=== PATIENT | male | born 1975 | race Caucasian/White ===

== ENCOUNTER 2020-08-02 02:16 | Inpatient (IN) | payer MEDICARE, OTHER ==
[~2020-08-02] VITALS: Ht 180.3 cm; Wt 108.4 kg
[2020-08-02 02:50] LABS: HEMOGLOBIN 14.6 gm/dl (14.0-17.5); RED BLOOD COUNT 4.61 M/UL (4.20-5.50); WHITE BLOOD COUNT 11.4 K/UL (4.5-11.0)
[2020-08-02 03:07] LABS: BUN/CREATININE RATIO 17 (0-10)
[2020-08-02] MEDS ORDERED: OXYCODONE HCL10 MG PO (08:27)
[2020-08-02] MEDS ORDERED: REVATIO 20 MG T20 MG PO (08:28)
[2020-08-02] MEDS ORDERED: GABAPENTIN600 MG PO (08:28)
[2020-08-02] MEDS ORDERED: METAXALONE800 MG PO (08:29)
[2020-08-03 02:47] LABS: HEMOGLOBIN 12.8 gm/dl (14.0-17.5); RED BLOOD COUNT 4.18 M/UL (4.20-5.50)
[2020-08-03 08:23] LABS: BUN/CREATININE RATIO 11 (0-10)
[2020-08-04 08:12] LABS: HEMOGLOBIN 13.3 gm/dl (14.0-17.5); RED BLOOD COUNT 4.18 M/UL (4.20-5.50)
[2020-08-04 08:13] LABS: WHITE BLOOD COUNT 14.6 K/UL (4.5-11.0)
[2020-08-04 08:31] LABS: BUN/CREATININE RATIO 9 (0-10)
[2020-08-05 08:15] LABS: HEMOGLOBIN 13.1 gm/dl (14.0-17.5); RED BLOOD COUNT 4.14 M/UL (4.20-5.50); WHITE BLOOD COUNT 11.7 K/UL (4.5-11.0)
[2020-08-05 08:50] LABS: BUN/CREATININE RATIO 10 (0-10)
[2020-08-05] MEDS ORDERED: ZOFRAN 4 MG TAB4 MG PO (12:04)
[2020-08-05] MEDS ORDERED: MELATONIN3 MG PO (12:04)
[2020-08-05] MEDS ORDERED: PROTONIX40 MG PO (12:04)
[2020-08-05] MEDS ORDERED: NORVASC10 MG PO (12:04)
[2020-08-05] MEDS ORDERED: PERCOCET 5/325 T1 EA PO (12:09)
--- NOTE | 2020-08-05 14:53 | NUR ---
1400-MD MARTIN AWARE OF BP 142/102 NO NEW ORDERS CONT WITH DC HOME
== END 2020-08-05 14:38 | disposition home or self-care (01) | DRG 439 ==
LOC: ER1 02:16 → CDU 04:45 → M/S 04:45 → PROG CARE 07:44 → M/S 21:23
PROVIDERS: Emergency Medicine; Internal Medicine; ADMIT Internal Medicine
DX: K85.90 Acute pancreatitis without necrosis or infection, unspecified (principal); F11.20 Opioid dependence, uncomplicated; G89.29 Other chronic pain; I10 Essential (primary) hypertension; E87.6 Hypokalemia; E66.9 Obesity, unspecified; N28.89 Other specified disorders of kidney and ureter; K21.9 Gastro-esophageal reflux disease without esophagitis; Z20.822 Contact with and (suspected) exposure to COVID-19; M54.5 Low back pain; E78.5 Hyperlipidemia, unspecified; K29.80 Duodenitis without bleeding
CPT/HCPCS: 36415; 71045; 76705; 80053; 80061; 80307; 81001; 82550; 82553; 83605; 83690; 84484; 85025; 85027; 85610; 85730; 93005; 96374; 96375; 96376; 99285; C9113; J0360; J1170; J1650; J2270; J2405; J3480; J7120; Q9967; U0002

== ENCOUNTER 2021-07-14 17:17 | Observation (INO) | payer MEDICARE ==
[~2021-07-14] VITALS: Ht 188 cm; Wt 99.8 kg
[~2021-07-14 17:17] MED LIST: GABAPENTIN300 MG PO; MELATONIN3 MG PO; METAXALONE800 MG PO; NORVASC10 MG PO; OXYCODONE HCL10 MG PO; PERCOCET 5/325 T1 EA PO; PROTONIX40 MG PO; REVATIO 20 MG T20 MG PO; ZOFRAN 4 MG TAB4 MG PO
[2021-07-14 18:19] LABS: HEMOGLOBIN 15.4 gm/dl (14.0-17.5); RED BLOOD COUNT 4.78 M/UL (4.20-5.50); WHITE BLOOD COUNT 14.1 K/UL (4.5-11.0)
[2021-07-14 18:59] LABS: BUN/CREATININE RATIO 9 (0-10)
[2021-07-15 02:57] LABS: HEMOGLOBIN 14.3 gm/dl (14.0-17.5); RED BLOOD COUNT 4.51 M/UL (4.20-5.50); WHITE BLOOD COUNT 12.9 K/UL (4.5-11.0)
[2021-07-15 03:32] LABS: BUN/CREATININE RATIO 10 (0-10)
[2021-07-15] MEDS ORDERED: PRAVASTATIN SOD20 MG PO (09:59)
[2021-07-15] MEDS ORDERED: HYDROCHLOROTHIA25 MG PO (09:59)
[2021-07-15] MEDS ORDERED: LANSOPRAZOLE30 MG PO (10:00)
[2021-07-15] MEDS ORDERED: DIOVAN320 MG PO (10:00)
--- NOTE | 2021-07-16 02:25 | NUR ---
AT 0150, PATIENT CALLED OUT STATING HE NEEDED HIS PAIN MEDICINE AND THAT HIS IV FLUIDS HAD BEEN OUT FOR SIX HOURS. UPON ENTERING THE ROOM THE PATIENT'S IV WAS TURNED OFF. I ASKED WHO TURNED THE MACHINE OFF AND HE STATED HE DID. I INFORMED HIM THAT HE WAS TO NOT TOUCH THE MACHINE. I ALSO INFORMED HIM THAT MYSELF AND THE TECH HAD BEEN IN THE ROOM SEVERAL TIMES PAST 8PM AND THE IVFS WERE RUNNING. I ALSO REITERATED THAT HIS PAIN MEDICINE WAS NEEDED AND NOT SCHEDULED HE INFORMED ME THAT HE MISSED A DOSE OF HIS DILAUDID. HE STATED HE MIGHT NEED TO INFORM HIS "GOOD AYDEE" KELSIE ABOUT THIS. PATIENT INFORMED THAT HE WAS ASLEEP EVERY TIME I CHECKED ON HIM WITH HIS GIRLFRIEND IN THE BED. NO S/S OF PAIN NOTED. PATIENT MEDICATED, IVFS HUNG SCHEDULED, IV SITE INTACT WITH 0 S/S OF THROMBOPHLEBITIS NOTED.
== END 2021-07-16 14:30 | disposition home or self-care (01) ==
LOC: ER1 17:17 → CDU 22:40 → M/S 22:40
PROVIDERS: Physician Assistant; ADMIT Internal Medicine
DX: R10.13 Epigastric pain (principal); Z20.822 Contact with and (suspected) exposure to COVID-19; I10 Essential (primary) hypertension; M51.36 Other intervertebral disc degeneration, lumbar region; K21.9 Gastro-esophageal reflux disease without esophagitis; E78.5 Hyperlipidemia, unspecified; Z79.891 Long term (current) use of opiate analgesic; Z79.899 Other long term (current) drug therapy; Z88.0 Allergy status to penicillin; Z88.1 Allergy status to other antibiotic agents; Z88.7 Allergy status to serum and vaccine
CPT/HCPCS: 36415; 76705; 80053; 80061; 80307; 81001; 82150; 83690; 85025; 96372; 96374; 96375; 96376; 99285; C9113; G0378; J1170; J1650; J2405; J3480; Q9967; U0002